=== PATIENT | male | born 1945 | race Hispanic/Latino ===

== ENCOUNTER 2016-12-21 09:53 | Inpatient (IN) | payer OTHER, SELFPAY ==
[~2016-12-21 09:53] MED LIST: Sodium Chloride 0.9% 100 ML BAG ONE
[2016-12-21 10:40] LABS: #Basophils 0.2 thou/uL (0.0-0.2); #Eosinphils 0.3 thou/uL (0.0-0.7); #Lymphocytes 2.3 thou/uL (1.20-3.40); #Monocytes 1.5 thou/uL (0.11-0.59); #Neutrophils 10.6 thou/uL (1.40-6.50); %Basophils 1.1 % (0.0-1.0); %Eosinophils 1.7 % (0.0-10.0); %Lymphocytes 15.7 % (21.0-51.0); %Monocytes 9.9 % (0.0-10.0); %Neutrophils 71.5 % (42.0-75.0); Hemoglobin 17.7 g/dL (14.0-18.0); Mean Corpuscular HGB CONC 35.6 g/dL (32.0-36.0); Mean Corpuscular Hemoglobin 32.8 pg (27.0-31.0); Mean Corpuscular Volume 92.2 fl (80.0-94.0); Mean Platelet Volume 7.5 fL (7.4-10.4); Platelet Count 216 thou/uL (130-400); RBC Distribution Width 12.8 % (11.5-14.5); Red Blood Cell (RBC) Count 5.39 mill/uL (4.70-6.10); White Blood Cell (WBC) Count 14.8 thou/uL (4.8-10.8)
[2016-12-21 10:49] LABS: INR-International Normal Ratio 1.3; PTT 29.1 SEC (22.9-36.1); Prothrombin Time 16.5 SEC (12.0-14.7)
[2016-12-21] MEDS ORDERED: Ketorolac Tromethamine 30 MG/ML VIAL ONE (10:51)
[2016-12-21] MEDS ORDERED: Benzonatate 100 MG CAP ONE ×2 (10:51→10:52)
[2016-12-21] MEDS ORDERED: AMOXicillin 250 MG CAP ONE (10:51)
[2016-12-21] MEDS ORDERED: methylPREDNISolone Sod Succ/PF 125 MG/2 ML VIAL ONE (10:51)
[2016-12-21] MEDS ORDERED: Dexamethasone 10 MG/ML VIAL ONE (10:51)
[2016-12-21 10:57] LABS: ALT (SGPT) 9 U/L (0-55); AST (SGOT) 14 U/L (5-34); Albumin 3.3 g/dL (3.4-4.8); Alkaline Phosphatase 103 U/L (40-150); Anion Gap 13 mmol/L (10-20); BUN (Urea Nitrogen) 15 mg/dL (8.4-25.7); Bilirubin, Total 0.8 mg/dL (0.2-1.2); Calc. Creatinine Clearance 0 mL/min (70-130); Calcium 8.6 mg/dL (7.8-10.44); Carbon Dioxide 22 mmol/L (23-31); Chloride 106 mmol/L (98-107); Estimated GFR-MDRD 75; Globulin 6.1 g/dL (2.4-3.5); Glucose 110 mg/dL (80-115); Potassium 3.6 mmol/L (3.5-5.1); Protein, Total 9.4 g/dL (5.8-8.1); Sodium 137 mmol/L (136-145)
--- NOTE | 2016-12-21 11:16 | RAD ---
PORTABLE CHEST ONE VIEW 12/21/2016 10:37 A.M. HISTORY: Dyspnea. FINDINGS: The heart size is borderline. The aorta is tortuous. There is mild pulmonary vascular congestion. No pneumothorax, or large effusions seen. There is a questionable patchy infiltrate in the right m id lung, laterally. The possibility of pneumonia cannot be excluded. POS: [facility]
[2016-12-21] MEDS ORDERED: Enoxaparin Sodium 80 MG/0.8 ML SYRINGE ONE (12:05)
[2016-12-21] MEDS ORDERED: cefTRIAXone\\ROCEPHIN 1 GM VIAL ONE (12:19)
[2016-12-21] MEDS ORDERED: Azithromycin 500 MG VIAL ONE (12:19)
[2016-12-21 12:26] LABS: CKMB 0.8 ng/mL (0-6.6); Troponin I Less than 0.010 ng/mL (< 0.028)
[2016-12-21] MEDS ORDERED: Bisacodyl 5 MG TAB PO PRN (13:19)
[2016-12-21] MEDS ORDERED: Ondansetron HCl/PF 4 MG/2 ML Vial SLOW IVP PRN (13:19)
[2016-12-21] MEDS ORDERED: HYDROcodone/Acetaminophen 5/325 mg Tablet PO PRN ×2 (13:19)
[2016-12-21] MEDS ORDERED: Acetaminophen 325 MG TAB PO PRN (13:19)
[2016-12-21] MEDS ORDERED: Loperamide HCl 2 MG CAP PO PRN ×2 (13:19)
[2016-12-21] MEDS: Sodium Chloride 0.9% 1,000 ML IV SCH ×2 (15:18→23:43)
[2016-12-21] MEDS: cefTRIAXone\\ROCEPHIN 1 GM in Sodium Chloride 0.9% 100 ML IVPB SCH (15:20)
[2016-12-21] MEDS: Azithromycin 500 MG in Sodium Chloride 0.9% 250 ML 250 ML IVPB SCH (15:24)
[2016-12-21 19:38] VITALS: BMI 27.3
[2016-12-21] MEDS: Atorvastatin Calcium 10 MG TAB PO SCH (21:11)
[2016-12-21] MEDS: guaiFENesin ER 600 MG TAB PO SCH (21:12)
--- NOTE | 2016-12-22 01:35 | HP ---
DATE OF ADMISSION: 12/21/2016 ATTENDING: Nevaeh Belcher M.D. PRIMARY CARE PHYSICIAN: Edith Sanches NP REASON FOR ADMISSION: Shortness of breath and persistent cough. HISTORY OF PRESENT ILLNESS AND HOSPITAL COURSE: Mr. Negrete is a 71-year-old male with history of dyslipidemia, former smoker for 20 years, quit since 1993. The patient reports upper respiratory symptoms over the past 3 days that has progressively worsened. This is associated with sputum production with minimal, occasional brown colored sputum, shortness of breath, wheezing, and chest tightness. The patient went to the ER today for persistent symptoms. When seen in the ER, patient's initial vital signs were reported with blood pressure 145/81, pulse 91, respirations 22, temperature 98.5, and O2 saturation 85% on room air. O2 sats went up to 90 at 2 to 3 liters per nasal cannula oxygen. When examined per report, the patient was not in acute respiratory distress, but chest exam included findings of symmetrical chest movement, equal chest expansion with moderate rales scattered in both lung whiting. Chest x-ray showed borderline heart size with mild pulmonary vascular congestion, no pneumothorax or large effusions seen. There is a questionable patchy infiltrate in the right mid lung laterally, possibility of pneumonia cannot be excluded. His baseline Lab showed significant mild leukocytosis with left shit. There was some elevation of his CRP. There was no reported symptoms of SIRS. Cradiac enzymes and baseline EKG was unremarkable for ischemic changes. The patient received breathing treatments from the ER and IV antibiotics for empiric treatment including Zithromax and Rocephin were started. He also received 1 dose of Solu-Medrol 125 mg IV and one dose of Decadron injection 10 mg IV. The patient reports some improvement after the initial treatment, but patient's 02 sats remain low requiring continuous oxygen supplement per nasal cannula. ER physician recommended inpatient management for pneumonia, thus subsequently admitted. When seen in the room, the patient was resting comfortably in bed, ready to eat lunch. He was surrounded by his family represented by his son and daughter-in- law. The patient reports he feels a little better, but still coughing. He was on continuous oxygen. Denies chest pain, active shortness of breath, pain with breathing, bloody sputum. PAST MEDICAL HISTORY: Dyslipidemia, hemorrhoids, former smoker. PAST SURGICAL HISTORY: Colonoscopy in 04/2014, unremarkable. FAMILY HISTORY: Father at 73 years of age for prostate gallstone, heart disease. Mother at 71 years of age due to heart attack. Siblings alive, one has cancer unknown type. Two brothers have for liver and prostate cancer. One sister has been diagnosed of colon and liver cancer. SOCIAL HISTORY: The patient is a former smoking for more than 20 years. He quit in 1993. Reports occasional use of alcohol once a week at least. Stopped drinking alcoholic beverages over the last 7 months. Denies illicit drug use. ALLERGIES: No known drug allergies. MEDICATIONS: 1. Atorvastatin 20 mg p.o. every Wednesday, Wednesday, and Wednesday. 2. Mucinex. Hospitalization: Denies hospitalization. REVIEW OF SYSTEMS: General: Reports low grade fever, chilly sensation, fatigue and general weakness. HEENT: No acute visual changes or hearing changes. Respiratory: As per HPI. Cardiac: Denies chest pain, pain with breathing, dyspnea on exertion, paroxysmal nocturnal dyspnea or leg swelling. Gastrointestinal: No nausea, vomiting, abdominal pain, diarrhea, constipation, rectal bleeding. Genitourinary: No dysuria, hematuria, frequency, urgency. Musculoskeletal: Reports intermittent arthralgia and body aches lately. No joint effusions. No erythema. Skin: No rashes, no lesions. Neurologic: Denies new motor or sensory losses. Psych: Denies depressive symptoms or anxiety or hallucinations. PHYSICAL EXAMINATION: VITAL SIGNS: On admission, temperature 99.9, pulse 92, O2 sats 92% at 4 liters per nasal cannula, respirations 22, blood pressure 118/75, weight 173 pounds, height 5 feet 7 inches. GENERAL: The patient is awake and alert, generally weak looking, fatigued looking, elderly, not in acute distress. Danish speaking only. Son acts as the pie bakery laborer. HEENT: Normocephalic, atraumatic. PERRL, intact EOM. Nonicteric sclerae. Oral mucosa is moist. No tonsillar exudates. NECK: Supple. No LAD, no JVD, no bruit. CHEST: Mildly tachypneic, nonlabored breathing, diminished breath sounds bibasilarly. No rales, no crackles, no rhonchi, no wheezes noted. HEART: Regular rate and rhythm. Normal S1 and S2. No murmurs. ABDOMEN: Flat, soft, normoactive bowel sounds, nondistended, nontender. Negative CVA tenderness bilaterally. EXTREMITIES: No edema, no cyanosis. NEUROLOGIC: Nonfocal. PSYCHIATRIC: Appears calm with appropriate demeanor and affect. LABORATORY DATA: WBC 14.8, hemoglobin 17.7, hematocrit 49.7, platelets 216. PT 16.5, INR 1.38, PTT 29.1. Chemistry: Sodium 137, potassium 3.6, carbon dioxide 22, anion gap 13, BUN 15, creatinine 0.99, estimated GFR 75, glucose 110 , calcium 8.6. Liver function tests within normal limits. CK 81, CK-MB 0.8, troponin less than 0.010, C-reactive protein 15.88. BNP 11.7, albumin 3.3. ASSESSMENT: 1. Pneumonia, community acquired. 2. Hypoxia, O2 requiring. 3. Dyslipidemia. PLAN: 1. The patient is admitted to [facility] for inpatient management of community acquired pneumonia. We will continue empiric IV therapy with Rocephin and Zithromax. Continue 02 supplement to keep 02 greater than 94%. To wean off once appropriate. Serial labs and chest xray for monitoring. Continue IVF. Continue home medication as per list. 2. Gastrointestinal prophylaxis with PPI. DVT prophylaxis with Lovenox. 3. Further recommendations depending on the hospital course. DISPOSITION: Home once appropriate. CODE STATUS: The patient reports DO NOT RESUSCITATE/DO NOT INTUBATE in the presence of his family represented by his son and [id number], who both concur for patient's wishes. VINEET
[2016-12-22 05:34] LABS: #Basophils 0.1 thou/uL (0.0-0.2); #Lymphocytes 2.1 thou/uL (1.20-3.40); #Monocytes 0.7 thou/uL (0.11-0.59); #Neutrophils 16.2 thou/uL (1.40-6.50); %Basophils 0.4 % (0.0-1.0); %Lymphocytes 11.2 % (21.0-51.0); %Monocytes 3.6 % (0.0-10.0); %Neutrophils 84.8 % (42.0-75.0); Hemoglobin 15.7 g/dL (14.0-18.0); Mean Corpuscular HGB CONC 35.5 g/dL (32.0-36.0); Mean Corpuscular Hemoglobin 32.5 pg (27.0-31.0); Mean Corpuscular Volume 91.5 fl (80.0-94.0); Mean Platelet Volume 7.9 fL (7.4-10.4); Platelet Count 226 thou/uL (130-400); RBC Distribution Width 12.5 % (11.5-14.5); Red Blood Cell (RBC) Count 4.84 mill/uL (4.70-6.10); White Blood Cell (WBC) Count 19.1 thou/uL (4.8-10.8)
[2016-12-22 05:46] LABS: Anion Gap 15 mmol/L (10-20); BUN (Urea Nitrogen) 22 mg/dL (8.4-25.7); Calc. Creatinine Clearance 94 mL/min (70-130); Calcium 8.4 mg/dL (7.8-10.44); Carbon Dioxide 16 mmol/L (23-31); Chloride 112 mmol/L (98-107); Estimated GFR-MDRD Greater than 90; Glucose 161 mg/dL (80-115); Potassium 3.9 mmol/L (3.5-5.1); Sodium 139 mmol/L (136-145)
[2016-12-22] MEDS: Enoxaparin Sodium 40 MG/0.4 ML SYRINGE SC SCH (05:54)
--- NOTE | 2016-12-22 07:46 | RAD ---
CHEST PA AND LATERAL: Date: 12/22/16 HISTORY: 71-year-old male, follow-up pneumonia. FINDINGS: More confluent alveolar opacity changes are noted in the right lower lobe, evidence for continued pn eumonia. Nonspecific bilateral vascular congestion and increased markings bilaterally, stable. IMPRESSION: Continued right lower lobe pneumonia, becoming somewhat more opaque and more dense when compared to the prior study. Stable bilateral vascular congestion. POS: [facility]
[2016-12-22] MEDS: Sodium Chloride 0.9% 1,000 ML IV SCH (09:02)
[2016-12-22] MEDS: guaiFENesin ER 600 MG TAB PO SCH ×2 (09:04→21:15)
[2016-12-22] MEDS: Sodium Chloride 0.45% 1,000 ML IV SCH ×2 (12:52→21:29)
[2016-12-22] MEDS: cefTRIAXone\\ROCEPHIN 1 GM in Sodium Chloride 0.9% 100 ML IVPB SCH (13:55)
[2016-12-22] MEDS: Azithromycin 500 MG in Sodium Chloride 0.9% 250 ML 250 ML IVPB SCH (15:10)
[2016-12-23] MEDS: Sodium Chloride 0.45% 1,000 ML IV SCH (03:02)
[2016-12-23] MEDS: Enoxaparin Sodium 40 MG/0.4 ML SYRINGE SC SCH (06:00)
[2016-12-23 06:27] LABS: Hemoglobin 14.1 g/dL (14.0-18.0); Lymphocytes 19 % (21-51); MDiff Complete? YES; Mean Corpuscular HGB CONC 34.2 g/dL (32.0-36.0); Mean Corpuscular Hemoglobin 31.9 pg (27.0-31.0); Mean Corpuscular Volume 93.1 fl (80.0-94.0); Mean Platelet Volume 8.3 fL (7.4-10.4); Monocytes 5 % (0-10); Neutrophil 76 % (42-75); PLT Morphology Comment Appears Adequate; Platelet Count 207 thou/uL (130-400); RBC Distribution Width 12.9 % (11.5-14.5); Red Blood Cell (RBC) Count 4.42 mill/uL (4.70-6.10); White Blood Cell (WBC) Count 21.3 thou/uL (4.8-10.8)
[2016-12-23] MEDS: guaiFENesin ER 600 MG TAB PO SCH ×2 (08:59→21:01)
--- NOTE | 2016-12-23 09:01 | RAD ---
PA AND LATERAL VIEWS OF THE CHEST: History: Pneumonia. FINDINGS: Comparison is made with exam of the previous day. The heart size is normal. The lungs are well expanded with stable chronic changes. Alveolar opacit ies in the right lower lung are again seen. No pneumothoraces or pleural effusions are identified. IMPRESSION: Stable right sided pneumonia. POS: [facility]
[2016-12-23] MEDS ORDERED: Sodium Chloride 0.45% 1,000 ML BAG ONE (13:31)
[2016-12-23] MEDS ORDERED: Sodium Chloride 0.9% 1,000 ML BAG ONE (13:31)
[2016-12-23] MEDS: cefTRIAXone\\ROCEPHIN 1 GM in Sodium Chloride 0.9% 100 ML IVPB SCH (14:14)
[2016-12-23] MEDS: Azithromycin 500 MG in Sodium Chloride 0.9% 250 ML 250 ML IVPB SCH (15:30)
[2016-12-23] MEDS: Atorvastatin Calcium 10 MG TAB PO SCH (21:01)
[2016-12-24 05:04] LABS: #Basophils 0.3 thou/uL (0.0-0.2); #Eosinphils 0.1 thou/uL (0.0-0.7); #Monocytes 1.5 thou/uL (0.11-0.59); %Basophils 2.4 % (0.0-1.0); %Lymphocytes 30.7 % (21.0-51.0); %Monocytes 11.8 % (0.0-10.0); %Neutrophils 54.1 % (42.0-75.0); Hemoglobin 14.9 g/dL (14.0-18.0); Mean Corpuscular HGB CONC 33.9 g/dL (32.0-36.0); Mean Corpuscular Hemoglobin 31.3 pg (27.0-31.0); Mean Corpuscular Volume 92.3 fl (80.0-94.0); Mean Platelet Volume 7.4 fL (7.4-10.4); Platelet Count 228 thou/uL (130-400); RBC Distribution Width 12.7 % (11.5-14.5); Red Blood Cell (RBC) Count 4.77 mill/uL (4.70-6.10)
[2016-12-24] MEDS: Enoxaparin Sodium 40 MG/0.4 ML SYRINGE SC SCH (05:49)
[2016-12-24] MEDS: guaiFENesin ER 600 MG TAB PO SCH (09:31)
[2016-12-24] MEDS: cefTRIAXone\\ROCEPHIN 1 GM in Sodium Chloride 0.9% 100 ML IVPB SCH (09:32)
[2016-12-24] MEDS ORDERED: cefTRIAXone\\ROCEPHIN 1 GM in Sodium Chloride 0.9% 100 ML IVPB SCH (09:45)
[2016-12-24] MEDS ORDERED: Azithromycin 500 MG in Sodium Chloride 0.9% 250 ML 250 ML IVPB SCH (10:15)
[2016-12-24 10:40] VITALS: BP 124/68; TEMP 98.3
[2016-12-24] MEDS ORDERED: Amoxicillin/Potassium Clav 875 MG TAB PO SCH ×2 (11:15→21:00)
[2016-12-24] MEDS ORDERED: Cefdinir 300 MG CAP PO SCH (21:00)
--- NOTE | 2016-12-24 21:23 | DIS ---
DATE OF ADMISSION: 12/21/2016 DATE OF DISCHARGE: 12/24/2016 ATTENDING: WARREN WAGNER M.D. PRIMARY CARE PHYSICIAN: VIVIENNE CARPIO NP REASON FOR ADMISSION: Shortness of breath, persistent cough. FINAL DIAGNOSES: 1. Community-acquired pneumonia. 2. Hypoxia, O2 requiring, improved. 3. Dyslipidemia. DISPOSITION: Home. CONDITION ON DISCHARGE: Stable. DISCHARGE MEDICATIONS: 1. Omnicef 300 mg p.o. b.i.d. for 7 days. 2. Mucinex 1200 mg p.o. b.i.d. 3. Atorvastatin 20 mg p.o. daily. 4. Aspirin 81 mg p.o. daily. DIET: Low salt, low fat. ACTIVITIES: Ad luis alberto. To avoid strenuous activities while recovering. FOLLOWUP: 1. Follow up with PCP or Dr. Wagner in 1 week, sooner with concerns. 2. X-ray follow up in 2-3 weeks to confirm resolution of pneumonia. HISTORY OF PRESENT ILLNESS AND HOSPITAL COURSE: Mr. Negrete is a 71-year-old male with history of dyslipidemia, former smoker for 20 years, quit since 1993 and with history of community-acquired pneumonia a few months ago. The patient presented in [facility] on 12/21/2016 with productive cough, wheezing and chest tightness that has progressively worsened over the past 3 days prior to admission. Upon presentation in the ER, his initial O2 saturation was 85% at room air . O2 sats went up to 90 at 2 to 3 liters per nasal cannula per report. He has a significant leukocytosis and initial lab with elevation of CRP. Chest x-ray showed borderline heart size with mild pulmonary vascular congestions and questionable patchy infiltrate on the right mid lung laterally; possibility of pneumonia. Patient was treated empirically with Rocephin and Zithromax IV. He also received from the ER Solu-Medrol IV and Decadron IV. The patient was subsequently admitted at [facility] for inpatient management of community-acquired pneumonia. He was initially on continuous O2 supplement per nasal cannula secondary to desaturations. The patient had a significant improvement of the overall breathing and O2 saturations over the course. He was walking more than 100 feet prior to discharge without use of assistive device. There was no significant dyspnea on exertion, pain with breathing, bloody sputum, chest pain , and paroxysmal nocturnal dyspnea noted. He was tolerating a room air with O2 sats greater than 94 and above 24 hour prior to discharge. Patient completed 3- day course of Rocephin and Zithromax. He will continue on Zithromax to compete 5 day course and Omnicef for 7 days, post-discharge. Vital signs prior to discharge, blood pressure 124/68, temperature 98.3, pulse ox is, O2 sat is 98% room air, weight 174 pounds and 9 ounces. MTDD
[2016-12-25] MEDS ORDERED: Azithromycin 250 MG TAB PO SCH (09:00)
== END 2016-12-24 12:55 | disposition home or self-care (01) | DRG 195 ==
LOC: MADERS 09:53 → MADMS 12:22
PROVIDERS: ADMIT Family Medicine; ATTEND Family Medicine
DX: J18.9 Pneumonia, unspecified organism (principal); I10 Essential (primary) hypertension; E78.5 Hyperlipidemia, unspecified; Z87.891 Personal history of nicotine dependence; Z66 Do not resuscitate
CPT/HCPCS: 36415; 71010; 71020; 80053; 82550; 82553; 83880; 84484; 85025; 85610; 85730; 86140; 87040; 90471; 90732; 93005; 94640; 94760; 96365; 96372; 96375; A4216; G0009; J0456; J0696; J1100; J1650; J1885; J2930; J7050; J7070; J7620

== ENCOUNTER 2017-01-08 08:18 | Outpatient (CLI) | payer OTHER ==
--- NOTE | 2017-01-08 10:20 | RAD ---
TWO VIEW CHEST: COMPARISON: 12/23/16. CLINICAL HISTORY: Pneumonia. FINDINGS: There has been interval decrease in confluent opacity of the right perihilar region with residual op acity remaining. Generalized interstitial prominence is present throughout each lung with hyperinfl ation present bilaterally. There is no effusion or pneumothorax. Cardiomediastinal silhouette is w ithin normal limits of size. IMPRESSION: Decreasing right perihilar pneumonia. Followup to resolution is recommended. POS: [facility]
== END 2017-01-08 08:19 | disposition home or self-care (01) ==
LOC: MADRAD 08:18
PROVIDERS: ATTEND Family Medicine
DX: J18.9 Pneumonia, unspecified organism (principal)
CPT/HCPCS: 71020

== ENCOUNTER 2017-02-12 07:59 | Outpatient (CLI) | payer OTHER ==
--- NOTE | 2017-02-12 09:35 | RAD ---
RADIOGRAPH CHEST 2 VIEWS: Date: 02/12/17 Time: 0804 HOURS HISTORY: 71-year-old male, follow-up pneumonia. COMPARISON: 01/08/17. FINDINGS: There is hyperinflation consistent with COPD. Lateral view demonstrates blunting of posterior costop hrenic angle suggestive of tiny pleural effusions versus pleural thickening. No cardiomegaly. No pne umothorax. Diffusely prominent interstitial markings, at least some component of which is probably c hronic. This appears slightly worse on the current study compared to the previous. This apparent dif ference may or may not be technical. IMPRESSION: 1. Interstitial infiltrates in the mid and lower lung zones which could be chronic, acute, or a com bination of both. 2. Hyperinflation is evidence for emphysema. 3. No consolidation. 4. Tiny pleural effusion. TYRELL [] POS: [facility]
== END 2017-02-12 08:00 | disposition home or self-care (01) ==
LOC: MADRAD 07:59
PROVIDERS: ATTEND Family Medicine
DX: J18.9 Pneumonia, unspecified organism (principal); J90 Pleural effusion, not elsewhere classified
CPT/HCPCS: 71020

== ENCOUNTER 2017-04-14 11:05 | Emergency (ER) | payer OTHER, SELFPAY ==
[~2017-04-14 11:05] MED LIST changes: +Sodium Chloride 0.9% 1,000 ML BAG ONE
[2017-04-14] MEDS ORDERED: Magnesium Sulfate 2 GM/NS 0.9% 50 ML BAG ONE (11:35)
[2017-04-14] MEDS ORDERED: methylPREDNISolone Sod Succ/PF 125 MG/2 ML VIAL ONE (11:35)
[2017-04-14] MEDS ORDERED: Dexamethasone 10 MG/ML VIAL ONE (11:35)
[2017-04-14] MEDS ORDERED: cefTRIAXone\\ROCEPHIN 1 GM VIAL ONE (11:35)
[2017-04-14 11:59] LABS: INR-International Normal Ratio 1.3; PTT 27.8 SEC (22.9-36.1); Prothrombin Time 16.3 SEC (12.0-14.7)
[2017-04-14 12:06] LABS: Bilirubin Negative (Negative); Clarity Clear (Clear); Glucose, Urine (Dipstick) Negative (Negative); Leukocyte Negative (Negative); Nitrite Negative (Negative); Specific Gravity, Urine 1.025 (1.005-1.030); Urobilinogen 0.2 mg/dL (0.2-1.0)
[2017-04-14 12:07] LABS: Bacteria/HPF Rare-Few HPF (None Seen); Blood, Urine Negative (Negative); Protein, Urine (Dipstick) Trace mg/dL (Neg-Trace); RBC/HPF 0-3 HPF (0-3); Squamous Epithelial 0-3 HPF (0-3); WBC/HPF 0-3 HPF (0-3)
[2017-04-14 12:09] LABS: Troponin I Less than 0.010 ng/mL (< 0.028)
[2017-04-14 12:11] LABS: ALT (SGPT) 17 U/L (8-55); AST (SGOT) 30 U/L (5-34); Albumin 2.9 g/dL (3.4-4.8); Alkaline Phosphatase 74 U/L (40-150); Anion Gap 12 mmol/L (10-20); BUN (Urea Nitrogen) 11 mg/dL (8.4-25.7); Bilirubin, Total 0.3 mg/dL (0.2-1.2); CK (CPK) 115 U/L (30-200); Calc. Creatinine Clearance 0 mL/min (70-130); Calcium 8.3 mg/dL (7.8-10.44); Carbon Dioxide 21 mmol/L (23-31); Chloride 107 mmol/L (98-107); Estimated GFR-MDRD 86; Globulin 7.9 g/dL (2.4-3.5); Glucose 94 mg/dL (80-115); Magnesium 2.1 mg/dL (1.6-2.6); Protein, Total 10.8 g/dL (5.8-8.1); Sodium 136 mmol/L (136-145)
[2017-04-14 12:13] LABS: Eosinophils 3 % (0-10); Lymphocytes 54 % (21-51); MDiff Complete? YES; Mean Corpuscular HGB CONC 34.2 g/dL (32.0-36.0); Mean Corpuscular Hemoglobin 31.3 pg (27.0-31.0); Mean Corpuscular Volume 91.4 fl (80.0-94.0); Mean Platelet Volume 7.6 fL (7.4-10.4); Monocytes 15 % (0-10); Neutrophil 28 % (42-75); PLT Morphology Comment Appears Adequate; Platelet Count 243 thou/uL (130-400); RBC Distribution Width 12.8 % (11.5-14.5); Red Blood Cell (RBC) Count 5.13 mill/uL (4.70-6.10); White Blood Cell (WBC) Count 7.2 thou/uL (4.8-10.8)
--- NOTE | 2017-04-14 12:22 | RAD ---
CHEST PA AND LATERAL: History: 71-year-old male with cough. Comparison: 02-12-17, 12-23-16 FINDINGS: Again noted are fairly extensive bilateral and mostly perihilar type interstitial parenchymal change s as well as bibasilar interstitial parenchymal changes. There are small bilateral pleural effusions . IMPRESSION: Fairly extensive diffuse bilateral mostly perihilar interstitial parenchymal changes, somewhat worse than on the 02-12-17 study with developing bilateral pleural effusions. These changes are considerab ly worse when compared to a 01-08-17 study, although there was a significant interstitial abnormal co mponent dating as far back as 12-23-16. This probably represents re-exacerbation of acute pulmonary e anastacio. Continued short term follow up for clearing or stability. No significant new confluent process . POS: [facility]
[2017-04-14] MEDS ORDERED: Furosemide 40 MG/4 ML VIAL ONE (13:03)
== END 2017-04-14 14:18 | disposition short-term general hospital (02) ==
LOC: MADERS 11:05
DX: I11.0 Hypertensive heart disease with heart failure (principal); I50.9 Heart failure, unspecified; R09.02 Hypoxemia; I10 Essential (primary) hypertension; E78.5 Hyperlipidemia, unspecified; Z79.82 Long term (current) use of aspirin
CPT/HCPCS: 36415; 51702; 71020; 80053; 81001; 82550; 82553; 83735; 83880; 84484; 85025; 85610; 85730; 87040; 87081; 87086; 87430; 93005; 94640; 94760; 96361; 96365; 96367; 96375; J0696; J1100; J1940; J2930; J3475; J7050; J7620

== ENCOUNTER 2017-07-10 17:55 | Emergency (ER) | payer MEDICAID, SELFPAY ==
[~2017-07-10 17:55] MED LIST changes: -Sodium Chloride 0.9% 100 ML BAG ONE
[2017-07-10] MEDS ORDERED: Ibuprofen 200 MG TAB ONE (18:17)
[2017-07-10 18:31] LABS: #Basophils 0.2 thou/uL (0.0-0.2); #Eosinphils 0.3 thou/uL (0.0-0.7); #Lymphocytes 2.4 thou/uL (1.20-3.40); #Monocytes 1.3 thou/uL (0.11-0.59); #Neutrophils 11.6 thou/uL (1.40-6.50); %Basophils 1.2 % (0.0-1.0); %Eosinophils 1.7 % (0.0-10.0); %Lymphocytes 15.3 % (21.0-51.0); %Monocytes 8.2 % (0.0-10.0); %Neutrophils 73.6 % (42.0-75.0); Hemoglobin 15.8 g/dL (14.0-18.0); Mean Corpuscular HGB CONC 34.2 g/dL (32.0-36.0); Mean Corpuscular Hemoglobin 30.6 pg (27.0-31.0); Mean Corpuscular Volume 89.7 fl (80.0-94.0); Mean Platelet Volume 8.3 fL (7.4-10.4); Platelet Count 247 thou/uL (130-400); Red Blood Cell (RBC) Count 5.14 mill/uL (4.70-6.10); White Blood Cell (WBC) Count 15.8 thou/uL (4.8-10.8)
[2017-07-10 18:41] LABS: ALT (SGPT) 14 U/L (8-55); AST (SGOT) 22 U/L (5-34); Alkaline Phosphatase 75 U/L (40-150); Anion Gap 13 mmol/L (10-20); BUN (Urea Nitrogen) 17 mg/dL (8.4-25.7); Bilirubin, Total 0.5 mg/dL (0.2-1.2); Calc. Creatinine Clearance 0 mL/min (70-130); Calcium 8.7 mg/dL (7.8-10.44); Carbon Dioxide 17 mmol/L (23-31); Chloride 107 mmol/L (98-107); Estimated GFR-MDRD 54; Globulin 8.8 g/dL (2.4-3.5); Glucose 115 mg/dL (80-115); Protein, Total 11.8 g/dL (5.8-8.1); Sodium 133 mmol/L (136-145)
--- NOTE | 2017-07-10 19:04 | RAD ---
CHEST PA AND LATERAL: 07/10/17 HISTORY: 71-year-old male with dyspnea. COMPARISON: 04/14/17. FINDINGS: Prominent increased linear and interstitial markings bilaterally, much more prominent than on the pr ior study. More prominent confluent parenchymal process. Heart size is normal. IMPRESSION: Chronic linear and interstitial and reticulonodular parenchymal changes throughout both lungs, evide nce for some extensive underlying chronic disease. Much more focally prominent interstitial and alve olar opacity changes in the right mid lung zone compared to the prior study raising concern for some degree of acute pneumonia or pneumonitis. Consider treatment and short term followup for clearing o r stability. Minimal bilateral costophrenic angle blunting. POS: [facility]
[2017-07-10] MEDS ORDERED: Levofloxacin 500 mg/D5W 100 ml Premix Bag ONE (19:16)
== END 2017-07-10 20:30 | disposition short-term general hospital (02) ==
LOC: MADERS 17:55
DX: J18.9 Pneumonia, unspecified organism (principal); E78.5 Hyperlipidemia, unspecified; I10 Essential (primary) hypertension; F17.210 Nicotine dependence, cigarettes, uncomplicated; Z79.82 Long term (current) use of aspirin; Z79.899 Other long term (current) drug therapy
CPT/HCPCS: 71020; 80053; 83605; 83880; 85025; 87040; 87070; 87205; 94760; 96361; 96365; J1956; J7050; J7620

== ENCOUNTER 2017-11-01 18:30 | Emergency (ER) | payer MEDICAID, SELFPAY ==
[~2017-11-01 18:30] MED LIST changes: +Sodium Chloride 0.9% 100 ML BAG ONE; +Sodium Chloride 0.9% 500 ML BAG ONE
[2017-11-01] MEDS ORDERED: Acetaminophen 500 MG TAB ONE (18:56)
[2017-11-01 19:24] LABS: ALT (SGPT) 20 U/L (8-55); AST (SGOT) 16 U/L (5-34); Albumin 3.6 g/dL (3.4-4.8); Alkaline Phosphatase 87 U/L (40-150); Anion Gap 17 mmol/L (10-20); BUN (Urea Nitrogen) 12 mg/dL (8.4-25.7); Bilirubin, Total 0.3 mg/dL (0.2-1.2); Calc. Creatinine Clearance 0 mL/min (70-130); Calcium 8.7 mg/dL (7.8-10.44); Carbon Dioxide 23 mmol/L (23-31); Chloride 104 mmol/L (98-107); Estimated GFR-MDRD Greater than 90; Globulin 4.6 g/dL (2.4-3.5); Glucose 122 mg/dL (80-115); Potassium 3.6 mmol/L (3.5-5.1); Protein, Total 8.2 g/dL (5.8-8.1); Sodium 140 mmol/L (136-145)
[2017-11-01 19:25] LABS: Band 9 % (5-11); Hemoglobin 15.7 g/dL (14.0-18.0); Lymphocytes 13 % (21-51); MDiff Complete? YES; Mean Corpuscular HGB CONC 33.4 g/dL (32.0-36.0); Mean Corpuscular Hemoglobin 31.3 pg (27.0-31.0); Mean Corpuscular Volume 93.8 fl (80.0-94.0); Mean Platelet Volume 6.9 fL (7.4-10.4); Monocytes 6 % (0-10); Neutrophil 72 % (42-75); PLT Morphology Comment Appears Adequate; Platelet Count 321 thou/uL (130-400); RBC Distribution Width 13.6 % (11.5-14.5); Red Blood Cell (RBC) Count 5.02 mill/uL (4.70-6.10); White Blood Cell (WBC) Count 23.7 thou/uL (4.8-10.8)
[2017-11-01 19:27] LABS: CKMB 0.3 ng/mL (0-6.6); Troponin I Less than 0.010 ng/mL (< 0.028)
[2017-11-01] MEDS ORDERED: Piperacillin/Tazobactam 3.375 GM VIAL ONE (19:33)
[2017-11-01] MEDS ORDERED: Oseltamivir 75 MG CAP ONE (19:42)
[2017-11-01 20:24] LABS: Bilirubin Negative (Negative); Blood, Urine Negative (Negative); Clarity Clear (Clear); Glucose, Urine (Dipstick) Negative (Negative); Leukocyte Negative (Negative); Nitrite Negative (Negative); Protein, Urine (Dipstick) Negative (Neg-Trace); Specific Gravity, Urine 1.015 (1.005-1.030); Urobilinogen 0.2 mg/dL (0.2-1.0)
--- NOTE | 2017-11-01 20:57 | RAD ---
PA AND LATERAL CHEST: Indication: Shortness of breath, fever. Comparison: 07-10-17 FINDINGS: There are some patchy opacities within the right lower lobe suspicious for pneumonia. There is mild o pacity within the right middle lobe. Left lung is clear. Cardiomediastinal silhouette is within zain l limits. No osseous abnormality is evident. IMPRESSION: 1. Right basilar pneumonia. POS: [facility]
== END 2017-11-01 20:18 | disposition short-term general hospital (02) ==
LOC: MADERS 18:30
DX: J11.00 Influenza due to unidentified influenza virus with unspecified type of pneumonia (principal); A41.9 Sepsis, unspecified organism; E78.5 Hyperlipidemia, unspecified; I10 Essential (primary) hypertension; Z87.891 Personal history of nicotine dependence; Z79.82 Long term (current) use of aspirin; Z79.01 Long term (current) use of anticoagulants
CPT/HCPCS: 71046; 80053; 81003; 82553; 83605; 84484; 85025; 87040; 87077; 87149; 87186; 94640; 94760; 96365; J2543; J7050; J7620

== ENCOUNTER 2018-11-21 18:32 | Emergency (ER) | payer SELFPAY ==
--- NOTE | 2018-11-21 19:34 | RAD ---
TWO VIEWS OF THE CHEST: 11/21/18 COMPARISON: 11/01/17. HISTORY: Cough. FINDINGS: There is increased linear interstitial density bilaterally, unchanged when compared to the prior exam . There is no pneumothorax, pleural fluid, focal consolidation or alveolar edema. Lungs are hyperinfl ated suggesting stable air trapping. IMPRESSION: Diffuse interstitial prominence and hyperinflation suggests air trapping. Findings are consistent wit h COPD in the proper clinical setting. No focal consolidation, or alveolar edema. POS: [facility]
[2018-11-21] MEDS ORDERED: HYDROcodone/Acetaminophen 5/325 mg Tablet ONE (19:52)
[2018-11-21] MEDS ORDERED: Azithromycin 250 MG TAB ONE (19:53)
[2018-11-21] MEDS ORDERED: Dexamethasone 4 MG TAB ONE (19:53)
[2018-11-21] MEDS ORDERED: Benzonatate 100 MG CAP ONE (19:53)
== END 2018-11-21 20:13 | disposition home or self-care (01) ==
LOC: MADERS 18:32
DX: J44.1 Chronic obstructive pulmonary disease with (acute) exacerbation (principal); I10 Essential (primary) hypertension; E78.5 Hyperlipidemia, unspecified; Z87.891 Personal history of nicotine dependence; Z79.01 Long term (current) use of anticoagulants
CPT/HCPCS: 71046; J7620; J8540

== ENCOUNTER 2019-01-31 20:16 | Emergency (ER) | payer SELFPAY ==
[~2019-01-31 20:16] MED LIST changes: -Sodium Chloride 0.9% 500 ML BAG ONE
[2019-01-31] MEDS ORDERED: Sodium Chloride 0.9% 100 ML ONE (20:45)
[2019-01-31] MEDS ORDERED: cefTRIAXone\\ROCEPHIN 2 GM VIAL ONE (20:45)
[2019-01-31] MEDS ORDERED: Sodium Chloride 0.9% 1,000 ML ONE (20:45)
[2019-01-31] MEDS ORDERED: Acetaminophen 500 MG TAB ONE (20:45)
--- NOTE | 2019-01-31 20:53 | RAD ---
FEXAM: Portable chest PROVIDED CLINICAL HISTORY: Dyspnea COMPARISON: 11/21/2018 FINDINGS: Cardiac and mediastinal silhouette is within normal limits. Airspace disease left lower lung zone. No pleural fluid or pneumothorax evident. IMPRESSION: Airspace disease left lower lung zone, compatible with pneumonia in the appropriate clinical context. Follow-up after treatment is recommended to evaluate for resolution.
[2019-01-31 21:03] LABS: INR-International Normal Ratio 1.7; Prothrombin Time 19.8 SEC (12.0-14.7)
[2019-01-31] MEDS ORDERED: Sodium Chloride 0.9% 250 ML 250 ML ONE (21:09)
[2019-01-31 21:14] LABS: ALT (SGPT) 17 U/L (8-55); AST (SGOT) 12 U/L (5-34); Albumin 3.8 g/dL (3.4-4.8); Alkaline Phosphatase 93 U/L (40-150); Anion Gap 17 mmol/L (10-20); BUN (Urea Nitrogen) 10 mg/dL (8.4-25.7); Bilirubin, Total 1.2 mg/dL (0.2-1.2); Calc. Creatinine Clearance 0 mL/min (70-130); Calcium 8.5 mg/dL (7.8-10.44); Carbon Dioxide 18 mmol/L (23-31); Chloride 105 mmol/L (98-107); Estimated GFR-MDRD 75; Glucose 179 mg/dL (83-110); Potassium 3.4 mmol/L (3.5-5.1); Protein, Total 7.8 g/dL (5.8-8.1); Sodium 137 mmol/L (136-145)
[2019-01-31 21:16] LABS: Band 1 % (5-11); Hemoglobin 15.9 g/dL (14.0-18.0); Lymphocytes 6 % (21-51); MDiff Complete? YES; Mean Corpuscular Hemoglobin 30.5 pg (27.0-31.0); Mean Corpuscular Volume 92.5 fL (78.0-98.0); Mean Platelet Volume 7.1 fL (7.4-10.4); Monocytes 7 % (0-10); Neutrophil 81 % (42-75); Platelet Count 226 thou/uL (130-400); Platelet Morphology Comment Appears Adequate; RBC Distribution Width 12.9 % (11.5-14.5); RBC Morphology Normal; Reactive Lymphocytes 5 % (0-10); Red Blood Cell (RBC) Count 5.22 mill/uL (4.70-6.10)
[2019-01-31] MEDS ORDERED: Cefepime 2 GM VIAL ONE (21:43)
[2019-01-31] MEDS ORDERED: Oseltamivir 75 MG CAP ONE (21:56)
== END 2019-01-31 23:02 | disposition short-term general hospital (02) ==
LOC: MADERS 20:16
DX: A41.9 Sepsis, unspecified organism (principal); J18.9 Pneumonia, unspecified organism; E78.5 Hyperlipidemia, unspecified; I10 Essential (primary) hypertension; J44.9 Chronic obstructive pulmonary disease, unspecified; Z87.891 Personal history of nicotine dependence; Z79.899 Other long term (current) drug therapy; Z79.01 Long term (current) use of anticoagulants; Z79.82 Long term (current) use of aspirin
CPT/HCPCS: 71045; 80053; 83605; 83880; 84484; 85025; 85610; 87040; 87804; 93005; 96365; 96367; 99292; J0692; J0696; J3370; J7050

== ENCOUNTER 2021-07-29 12:49 | Emergency (ER) | payer SELFPAY ==
[2021-07-29] MEDS ORDERED: Oxymetazoline HCl 0.05% (30 ML BOT) ONE (13:17)
== END 2021-07-29 13:42 | disposition home or self-care (01) ==
LOC: MADERS 12:49
DX: R04.0 Epistaxis (principal); E78.5 Hyperlipidemia, unspecified; Z86.711 Personal history of pulmonary embolism; Z87.891 Personal history of nicotine dependence; Z87.01 Personal history of pneumonia (recurrent); Z79.899 Other long term (current) drug therapy; Z79.01 Long term (current) use of anticoagulants
CPT/HCPCS: 99283

== ENCOUNTER 2022-07-11 08:07 | Emergency (ER) | payer MEDICAID, SELFPAY | END 2022-07-11 09:01 | disposition short-term general hospital (02) | LOC: MADERS 08:07 | DX: M79.661 Pain in right lower leg (principal); E78.5 Hyperlipidemia, unspecified; G62.9 Polyneuropathy, unspecified; Z87.891 Personal history of nicotine dependence; Z86.711 Personal history of pulmonary embolism; Z79.01 Long term (current) use of anticoagulants; Z79.899 Other long term (current) drug therapy | CPT/HCPCS: 99284 ==